=== PATIENT | male | born 1970 | race Caucasian/White ===

== ENCOUNTER → 2018-04-10 | Outpatient (CLI) | payer BC ==
--- NOTE | 2018-04-10 14:31 | PCVCIMAG ---
APPROVED REPORT Study performed: 04/10/2018 12:49:42 EXAM: Comprehensive 2D, Doppler, and color-flow Echocardiogram Patient Location: Echo lab Room #: 2Status: routine BSA: 2.17 HR: 68 bpmBP: 122/82 mmHg Rhythm: NSR Other Information Study Quality: Excellent Risk Factors: Cardiac Risk Factors: elevated coronary calcium score Indications Dyspnea 2D Dimensions IVSd: 7.48 (7-11mm)LVOT Diam: 24.42 (18-24mm) LVDd: 49.82 mm PWd: 7.32 (7-11mm)Ascending Ao: 31.92 (22-36mm) LVDs: 24.74 (25-40mm) Left Atrium: 34.96 (27-40mm) Aortic Root: 27.40 mm LV Single Plane 4CH: 63.60 % LV Single Plane 2CH: 68.55 % Biplane EF: 65.8 % Volumes Left Atrial Volume (Systole) Single Plane 4CH: 52.66 mLSingle Plane 2CH: 52.10 mL Biplane LA Volume: 53.00 mLLA ESV Index: 24.00 mL/m2 Aortic Valve AoV Peak Camron.: 1.15 m/s AO Peak Gr.: 5.33 mmHgLVOT Max P.90 mmHg LVOT Max V: 0.99 m/s CELINE Vmax: 4.01 cm2 Mitral Valve E/A Ratio: 1.6 MV Decel. Time: 149.40 ms MV E Max Camron.: 0.86 m/s MV A Camron.: 0.54 m/s TDI E/Lateral E': 6.14E/Medial E': 10.75 Medial E' Camron.: 0.08 m/s Lateral E' Camron.: 0.14 m/s Pulmonary Valve PV Peak Camron.: 1.10 m/sPV Peak Gr.: 4.86 mmHg Pulmonary Vein P Vein S: 0.66 m/sP Vein A: 0.37 m/s P Vein D: 0.58 m/sP Vein A Dur.: 86.5 msec P Vein S/D Ratio: 1.14 Tricuspid Valve TV Vmax: 0.80 m/s Left Ventricle The left ventricle is normal size. There is normal LV segmental wall motion. There is normal left ventricular wall thickness. Left ventricular systolic function is normal. The left ventricular ejection fraction is within the normal range. LVEF is 60-65%. Left ventricular filling pattern is normal for age. Right Ventricle The right ventricle is normal size. The right ventricular systolic function is normal. Atria The left atrium size is normal. The right atrium size is normal. Aortic Valve Aortic valve is trileaflet. No aortic regurgitation is present. There is no aortic valvular stenosis. Mitral Valve The mitral valve is normal in structure. There is no mitral valve regurgitation noted. No evidence of mitral valve stenosis. Tricuspid Valve The tricuspid valve is normal in structure. No tricuspid regurgitation is seen. Doppler findings do not suggest pulmonary hypertension. Pulmonic Valve The pulmonary valve is normal in structure. There is no pulmonic valvular regurgitation. Great Vessels The aortic root is normal in size. The ascending aorta is normal in size. Aortic arch is normal in caliber. IVC is normal in size and collapses >50% with inspiration. Pericardium There is no pericardial effusion. There is no pleural effusion. <Conclusion> The left ventricle is normal size. There is normal left ventricular wall thickness. Left ventricular systolic function is normal. Left ventricular filling pattern is normal for age. The right ventricle is normal size. The left atrium size is normal. The right atrium size is normal. There is no aortic valvular stenosis. The mitral valve is normal in structure. No tricuspid regurgitation is seen.
--- NOTE | 2018-04-10 14:33 | PCVCIMAG ---
APPROVED REPORT Study performed: 04/10/2018 13:29:43 Exam: Stress Echocardiogram Indication: CAD , Dyspnea Patient Location: Echo lab Stress Nurse: Sera Duque RN Room #: 2 Status: routine Ht: 5 ft 10 in HR: 77 bpm BP: 122/72 mmHg Rhythm: NSR Medical History Medical History: CAD non obstructive, Hyperlipidemia Cardiac Risk Factors: Hyperlipidemia Previous Cardiac Procedures: none Pretest Chest Pain Characteristics: No chest pain Exercise History: Physically active Procedure The patient underwent an Exercise Stress Test using the Frankie Protocol. Blood pressure, heart rate, and EKG were monitored. An Echocardiogram was performed by printer repair technician in four stages in quad fashion. At peak stress, four selected images were obtained and placed side by side with resting images for comparison. Stress Test Details Stress Test: Exercise stress testing was performed using a Frankie protocol. HR Resting HR: 73 bpmMax Heart Rate (APMHR): 173 bpm Max HR Achieved: 169 bpmTarget HR (85% APMHR): 147 bpm % of APMHR: 97 Recovery HR: 103 bpm HR response to stress: Normal HR response to stress BP Resting BP: 122/82 mmHg Max BP: 180/80 mmHg Recovery BP: 142/78 mmHg BP response to stress: Normal blood pressure response to stress. ECG Resting ECG: Sinus Rhythm Stress ECG: Sinus Rhythm, nonspecific ST-T abnormalities ST Change: Non-ischemic Arrhythmia: None Recovery ECG: Sinus Rhythm Recovery ST Change: Non-ischemic Recovery Arrhythmia: None Clinical Reason for Termination: Maximal effort Stress Symptoms: fatigue Exercise duration: 10 min 02 sec Highest Stage Achieved: Stage 4: 4.2 mph at 16% grade. Exercise capacity: 13.4 METs Overall Exercise Capacity for Age: Good Angina Score: None No complications. Stress ECG Conclusion The patient exercised according to the FRANKIE protocol for10:02 mins; achieving a work level of 13.4 METS. The resting heart rate of 73 bpm opal to a maximum heart rate of 169 bpm. This value represent 97% of the maximal, age-predicted heart rate. The resting blood pressure of 122/82mmHg, opal to a maximum blood pressure of 180/80 mmHg. The exercise test was stopped due to fatigue . Pre-Stress Echo The resting Echocardiogram showed normal left ventricular contractility with an estimated Ejection Fraction of about 55-60%. Normal wall motion in all segments on baseline images. Post-Stress Echo The stress Echocardiogram showed normal left ventricular contractility with an estimated Ejection Fraction of about 65-70%. Normal augmentation of wall motion in all segments on post stress images. Clinical No clinical or ECG evidence for ischemia. Conclusion Clinical Response: Non-ischemic Exercise Capacity: Above average Stress ECG Response: Non-ischemic Stress Echo Images: Non-ischemic No clinical, EKG or echocardiographic evidence for ischemia. No prior study available for comparison. <Conclusion> No clinical, EKG or echocardiographic evidence for ischemia.
== END | disposition home or self-care (01) ==
LOC: PCVCIMAG 13:07
PROVIDERS: ATTEND Internal Medicine Cardiovascular Disease
DX: I25.10 Atherosclerotic heart disease of native coronary artery without angina pectoris (principal); R93.1 Abnormal findings on diagnostic imaging of heart and coronary circulation; R06.09 Other forms of dyspnea
CPT/HCPCS: 93306; 93351